=== PATIENT | male | born 1985 | race Caucasian/White ===

== ENCOUNTER 2017-02-05 13:02 | Emergency (ER) | payer BC ==
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
[2017-02-05 14:13] VITALS: BP 142/92
--- NOTE | 2017-02-06 12:36 | CR ---
EXAM DATE: 02/05/17 PATIENT'S AGE: 31 Patient: TRISTON PATEL Facility: [place], [place] Site . Site : 1985 Study: XRay Extremity Left Ankle [id number]/16/2017 1:37:42 PM Ordering Physician: Doctor Lee Final Report: INDICATION: Left ankle injury with pain. TECHNIQUE: Three views of the left ankle. COMPARISON: None. FINDINGS: Nondisplaced, oblique distal fibular fracture with associated soft tissue swelling is seen. No other fractures. The alignment is otherwise within normal limits. Dictated by Levi Lynn MD @ 02/05/2017 2:13:19 PM Dictated by: Levi Lynn MD @ 02/05/2017 14:13:23 (Electronic Signature) Report Signed by Proxy. [facility]DA[facility]ul[facility]
--- NOTE | 2017-02-06 12:37 | CR ---
EXAM DATE: 02/05/17 PATIENT'S AGE: 31 Patient: TRISTON PATEL Facility: [place], [place] Site . Site : 1985 Study: XRay Extremity Left Foor [id number]/16/2017 1:38:10 PM Ordering Physician: Doctor Lee Final Report: INDICATION: Left foot pain after injury. TECHNIQUE: Two views of the left foot. COMPARISON: Left ankle x-rays 02/05/2017. FINDINGS: Again seen is a nondisplaced distal fibular fracture. No other fractures. The foot is intact. Otherwise unremarkable. Dictated by Levi Lynn MD @ 02/05/2017 2:15:24 PM Dictated by: Levi Lynn MD @ 02/05/2017 14:15:29 (Electronic Signature) Report Signed by Proxy. [facility]dulaz[facility]
== END 2017-02-05 14:05 | disposition home or self-care (01) ==
LOC: MW.ED 13:02
DX: S82.435A Nondisplaced oblique fracture of shaft of left fibula, initial encounter for closed fracture (principal); F17.210 Nicotine dependence, cigarettes, uncomplicated; Z79.899 Other long term (current) drug therapy; Y04.0XXA Assault by unarmed brawl or fight, initial encounter
CPT/HCPCS: 73610-26-LT; 73610-LT; 73620-26-LT; 73620-LT; 99283

== ENCOUNTER 2017-02-08 06:32 | Day surgery (SDC) | payer BC ==
[~2017-02-08 06:32] MED LIST: Lactated Ringers 1,000 ML IV SCH; ceFAZolin 2 GM in Premix Bag 1 BAG IV SCH
[2017-02-08] MEDS ORDERED: Ondansetron 4 MG/2 ML SDV ONE (07:32)
[2017-02-08] MEDS ORDERED: Lidocaine 2% 5 ML SDV ONE (07:32)
[2017-02-08] MEDS ORDERED: Midazolam 1 MG/ML 2 ML SDV ONE (07:33)
[2017-02-08] MEDS ORDERED: Propofol 200 MG/20 ML SDV ONE (07:33)
[2017-02-08] MEDS ORDERED: fentaNYL 250 MCG/5 ML SDV ONE (07:33)
--- NOTE | 2017-02-08 07:40 | PCM.PREANE ---
Preanesthetic Assessment - Anesthesia/Transfusion/Family Hx Anesthesia History: No Prior Anesthesia Transfusion History: No Prior Transfusion(s) Intubation History: Unknown - Review of Systems General: No Symptoms Pulmonary: No Symptoms Cardiovascular: No Symptoms Gastrointestinal: No symptoms Neurological: Gait Disturbance (due to fractured ankle), Other (ADHD on meds daily) Other: Reports: None - Physical Assessment NPO Status Date: 02/07/17 NPO Status Time: 22:00 O2 Sat by Pulse Oximetry: 97 Respiratory Rate: 16 Vital Signs: Last Vital Signs Temp 98.1 F 02/08/17 07:00 Pulse 92 02/08/17 07:00 Resp 16 02/08/17 07:00 BP 153/90 H 02/08/17 07:00 Pulse Ox 97 02/08/17 07:00 Height: 6 ft 0.83 in Weight: 218 lb 4.12 oz ASA Class: 2 Mental Status: Alert & Oriented x3 Airway Class: Mallampati = 1 Dentition: Reports: Normal Dentition, Broken Tooth/Teeth (#7/8) Thyro-Mental Finger Breadths: 3 Mouth Opening Finger Breadths: 3 ROM/Head Extension: Full Lungs: Clear to auscultation, Normal respiratory effort Cardiovascular: Regular Rate, Regular Rhythm, No Murmurs - Allergies Allergies/Adverse Reactions: Allergies Allergy/AdvReac Type Severity Reaction Status Date / Time No Known Allergies Allergy Verified 02/05/17 13:10 - Blood Blood Available: No Product(s) Available: None - Acknowledgements Anesthesia Type Planned: General Anesthesia (LMA) Pt an Appropriate Candidate for the Planned Anesthesia: Yes Alternatives and Risks of Anesthesia Discussed w Pt/Guardian: Yes Pt/Guardian Understands and Agrees with Anesthesia Plan: Yes PreAnesthesia Questionnaire - Past Health History Medical/Surgical History: Denies Medical/Surgical History HEENT History: Reports: Other (See Below) Other HEENT History: wears glasses/contacts Cardiovascular History: Reports: None Respiratory History: Reports: None Gastrointestinal History: Reports: None Genitourinary History: Reports: None Musculoskeletal History: Reports: None Neurological History: Reports: None Psychiatric History: Reports: ADHD Endocrine/Metabolic History: Reports: None Hematologic History: Reports: None Immunologic History: Reports: None Oncologic (Cancer) History: Reports: None Dermatologic History: Reports: None - Infectious Disease History Infectious Disease History: Reports: None - Past Surgical History Head Surgeries/Procedures: Reports: None HEENT Surgical History: Reports: None Cardiovascular Surgical History: Reports: None Male Surgical History: Reports: None Musculoskeletal Surgical History: Reports: None - SUBSTANCE USE Smoking Status *Q: Current Some Day Smoker Tobacco Use Within Last Twelve Months: Snuff/Dip Second Hand Smoke Exposure: No Days Per Week of Alcohol Use: 1 Number of Drinks Per Day: 1 Total Drinks Per Week: 1 Recreational Drug Use History: No - HOME MEDS Home Medications: Home Meds Dextroamphetamine/Amphetamine [Adderall 20 mg Tablet] 80 mg PO DAILY 05/11/16 [ History] Hydrocodone/Acetaminophen [Hydrocodon-Acetaminophen 5-325] 1 tab PO ASDIRECTED PRN 02/07/17 [History] - CURRENT (IN HOUSE) MEDS Current Meds: Current Medications Hydrocodone Bitart/Acetaminophen (Tye 325-5 Mg) 1 - 2 tab PO Q4H PRN PRN Reason: Pain Lactated Ringer's (Ringers, Lactated) 1,000 mls @ 100 mls/hr IV ASDIRECTED ROSSANA Last Admin: 02/08/17 07:15 Dose: 100 mls/hr Cefazolin Sodium/Dextrose 2 gm (/ Premix) 50 mls @ 100 mls/hr IV ONCALL ROSSANA Discontinued Medications Fentanyl (Sublimaze) Confirm Administered Dose 250 mcg .ROUTE .STK-MED ONE Stop: 02/08/17 07:34 Lidocaine (Xylocaine-Mpf 2%) Confirm Administered Dose 5 ml .ROUTE .STK-MED ONE Stop: 02/08/17 07:33 Midazolam HCl (Versed 1 Mg/Ml) Confirm Administered Dose 2 mg .ROUTE .STK-MED ONE Stop: 02/08/17 07:34 Ondansetron HCl (Zofran) Confirm Administered Dose 4 mg .ROUTE .STK-MED ONE Stop: 02/08/17 07:33 Propofol (Diprivan 20 Ml) Confirm Administered Dose 200 mg .ROUTE .STK-MED ONE Stop: 02/08/17 07:34
[2017-02-08] MEDS ORDERED: Acetaminophen/HYDROcodone 325-5 MG Tab PO PRN (08:00)
[2017-02-08] MEDS ORDERED: HYDROmorphone 2 MG/ML Syringe ONE (08:21)
[2017-02-08] MEDS ORDERED: Ketorolac 30 MG/ML SDV ONE (08:38)
--- NOTE | 2017-02-08 09:20 | PCM.OPNOTE ---
- General Post-Op/Procedure Note Date of Surgery/Procedure: 02/08/17 Operative Procedure(s): ORIF left distal fibula Post-Op Diagnosis: left distal fibula fracture, unstable Anesthesia Technique: General ET Tube Primary Surgeon: Mary Jo Harmon Manager Language: Mikaela Zayas in mLs: 10 Condition: Good Free Text/Narrative:: tt=25 min #[id number]
[2017-02-08] MEDS: fentaNYL 100 MCG/2 ML SDV IVPUSH PRN ×3 (09:28→10:17)
--- NOTE | 2017-02-08 09:37 | PCM.POSTAN ---
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
[2017-02-08 10:38] VITALS: BP 124/90
--- NOTE | 2017-02-08 15:39 | CR ---
EXAMINATION: Left ankle HISTORY: ORIF COMPARISON: 02/07/2017 TECHNIQUE: 5 views FINDINGS/IMPRESSION: Screw and plate hardware fixate a distal fibular fracture. Position and alignme nt appear near anatomic.
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
== END 2017-02-08 12:00 | disposition home or self-care (01) ==
LOC: MW.SDS 06:32
PROVIDERS: ATTEND Orthopaedic Surgery
PROC: 0QSK04Z Reposition Left Fibula with Internal Fixation Device, Open Approach (ICD-10-PCS; principal; 2017-02-08)
DX: S82.832A Other fracture of upper and lower end of left fibula, initial encounter for closed fracture (principal); F90.9 Attention-deficit hyperactivity disorder, unspecified type; F17.200 Nicotine dependence, unspecified, uncomplicated; Z91.013 Allergy to seafood; Z79.899 Other long term (current) drug therapy
CPT/HCPCS: 27792; 76000; A9270; C1713; J0690; J1170; J1885; J2250; J2405; J3010; J7120; 01480; J2704

== ENCOUNTER 2019-10-12 12:57 | Emergency (ER) | payer BC ==
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
[2019-10-12 13:34] VITALS: BP 132/74; PULSE 64
== END 2019-10-12 13:46 | disposition home or self-care (01) ==
LOC: MW.ED 12:57
DX: J03.00 Acute streptococcal tonsillitis, unspecified (principal); F90.9 Attention-deficit hyperactivity disorder, unspecified type; Z87.891 Personal history of nicotine dependence; Z79.899 Other long term (current) drug therapy
CPT/HCPCS: 87880-QW; 99283

== ENCOUNTER 2020-11-14 22:34 | Emergency (ER) | payer SELFPAY ==
[2020-11-14] MEDS ORDERED: Ketorolac 15 MG/ML SDV IM ONE (23:08)
--- NOTE | 2020-11-14 23:23 | EDM.PDOC ---
ED HPI GENERAL MEDICAL PROBLEM - General Chief Complaint: Upper Extremity Injury/Pain Stated Complaint: RT HAND SWOLLEN Time Seen by Provider: 11/14/20 22:53 - History of Present Illness INITIAL COMMENTS - FREE TEXT/NARRATIVE: CHIEF COMPLAINT(S): Hand pain HISTORY OF PRESENT ILLNESS: This is a 35-year-old man with a past medical history of hypertension who comes to the emergency department with a chief complaint of hand pain. The patient states that approximately 2 weeks ago he cut to the posterior aspect of his right hand near his pinky on a rig. He states that since that time the cut has been healing. He has not been using his hand for work for the last 2 weeks and he returned to work today. He states that he tripped and caught his right hand on something today and started to experience increased swelling. He states that there is 5 out of 10 tenths pain without any decreased range of motion, numbness but states that his right pinky finger is mildly tingling. He denies any fevers or chills. He states that he has not yet taken any pain medication. He states that movement of his hand exacerbates the tenths pain. He states that his tetanus is up-to-date. He denies any purulent drainage but states that his hand does appear to be red and swollen. He denies any other symptoms or other injury. REVIEW OF SYSTEMS: Constitutional: Denies fever, chills. Eyes: Denies eye pain Ears, Nose, Mouth, & Throat: Denies earache Cardiovascular: Denies chest pain Respiratory: Denies shortness of breath Gastrointestinal: Denies Nausea, vomiting, diarrhea, hematochezia. Genitourinary: Denies hematuria Skin:Denies a rash MSK: Positive for right hand pain and swelling Neurological: Positive for tingling of the right pinky. Denies numbness, weakness Psychiatric: Denies depression PAST MEDICAL HISTORY: As per history of present illness and as reviewed below otherwise noncontributory. SURGICAL HISTORY: As per history of present illness and as reviewed below otherwise noncontributory. SOCIAL HISTORY: As per history of present illness and as reviewed below otherwise noncontributory. FAMILY HISTORY: As per history of present illness and as reviewed below otherwise noncontributory. EXAMINATION OF ORGAN SYSTEMS/BODY AREAS: Constitutional: Blood pressure was 155/101, heart rate 97, respiratory rate 17 with an oxygen saturation of 98% on room air. Temperature 36.8 General: Overall well-appearing man who is in no acute distress Psychiatric: Appropriate mood and affect. Eyes: No scleral icterus or conjunctival erythema Cardiovascular: Regular, rate, and rhythm. No gallops, murmurs, or rubs. Bilateral upper extremity pulses symmetric and intact. No peripheral edema. No JVD. Capillary refill less than 2 seconds in distal right upper extremity Respiratory: Lungs clear to auscultation bilaterally. No wheezes, rales, or rhonchi. Musculoskeletal: Patient does have some decreased range of motion of his right fingers due to swelling however they are not held in a flexed position. There is no pain with passive extension of any of the digits. Fingers are not overtly swollen. Skin: There is some redness and warmth and swelling to the posterior aspect of the patient's right lateral hand without any purulent drainage. There appears to be a well-healing cut just over the knuckle of the right pinky. Neurological: Alert, GCS 15 distal sensation is intact MEDICAL DECISION MAKING AND COURSE IN THE ED WITH INTERPRETATION/REVIEW OF DIAGNOSTIC STUDIES: This is a 35-year-old man with a past medical history of hypertension who is right-handed who comes to the emergency department with right hand pain and swelling and redness and warmth after injury 2 weeks ago and exacerbation today while at work. At this time differential does include cellulitis. The patient did not obtain an x-ray with injury 2 weeks ago we will obtain a right hand x-ray to evaluate for fracture. This could be inflammatory. We will provide the patient with Toradol for pain relief. Will obtain basic labs including CBC, and CRP. Patient's tetanus is up-to-date. The radiological images were viewed by myself along with reading the report from the radiologist. Right hand x-ray does not reveal any acute fracture or dislocation. There is moderate to prominent soft tissue swelling involving the ulnar and dorsal aspect of the right hand. Laboratory: CBC reveals a leukocytosis of 14.86. There are no segmented neutrophils. ESR is 1, CRP is less than 0.20. At this time I did discuss the results with the patient. I did discuss that given that this is his right hand and that he is right-hand dominant I would like to start him on antibiotics for cellulitis. I discussed that if he had any worsening swelling, pain, pus drainage he is to return to the emergency department. He was amenable to discharge at this time and had no further questions. DISPOSITION: The patient was discharged home in stable condition. The patient will follow up with primary care physician within 3 to 5 days CONDITION: Fair PROCEDURES: None FINAL IMPRESSION(S)/DIAGNOSES: 1. Acute cellulitis of the right hand Randal Olivares M.D. Right Hand Pain Score (Numeric/FACES): 6 - Related Data Allergies Allergy/AdvReac Type Severity Reaction Status Date / Time No Known Allergies Allergy Verified 11/14/20 22:55 Home Meds: Home Meds Dextroamphetamine/Amphetamine [Adderall 20 mg Tablet] 80 mg PO DAILY 05/11/16 [History] Penicillin V Potassium [Veetids] 500 mg PO BID 10 Days #20 tab 10/12/19 [Rx] cephALEXin [Cephalexin] 500 mg PO Q6HR #28 tablet 11/15/20 [Rx] Past Medical History - Past Health History Medical/Surgical History: Denies Medical/Surgical History HEENT History: Reports: Other (See Below) Other HEENT History: wears glasses/contacts Cardiovascular History: Reports: None Respiratory History: Reports: None Gastrointestinal History: Reports: None Genitourinary History: Reports: None Musculoskeletal History: Reports: None Neurological History: Reports: None Psychiatric History: Reports: ADHD Endocrine/Metabolic History: Reports: None Hematologic History: Reports: None Immunologic History: Reports: None Oncologic (Cancer) History: Reports: None Dermatologic History: Reports: None - Infectious Disease History Infectious Disease History: Reports: None - Past Surgical History Head Surgeries/Procedures: Reports: None HEENT Surgical History: Reports: None Cardiovascular Surgical History: Reports: None Male Surgical History: Reports: None Musculoskeletal Surgical History: Reports: None Social & Family History - Family History Family Medical History: No Pertinent Family History - Caffeine Use Caffeine Use: Reports: Coffee, Energy Drinks Review of Systems - Review of Systems Review Of Systems: See Below ED EXAM, GENERAL - Physical Exam Exam: See Below Course - Vital Signs Last Recorded V/S: Last Vital Signs Temp 36.8 C 11/15/20 00:24 Pulse 81 11/15/20 00:24 Resp 17 11/15/20 00:24 BP 128/84 11/15/20 00:24 Pulse Ox 99 11/15/20 00:24 - Orders/Labs/Meds Labs: Laboratory Tests 11/14/20 11/14/20 11/14/20 Range/Units 23:30 23:30 23:30 WBC 14.86 H (4.0-11.0) K/uL RBC 5.15 (4.50-5.90) M/uL Hgb 15.9 (13.0-17.0) g/dL Hct 46.1 (38.0-50.0) % MCV 89.5 (80.0-98.0) fL MCH 30.9 (27.0-32.0) pg MCHC 34.5 (31.0-37.0) g/dL RDW Std Deviation 41.2 (28.0-62.0) fl RDW Coeff of Ayse 13 (11.0-15.0) % Plt Count 207 (150-400) K/uL MPV 9.60 (7.40-12.00) fL Neut % (Auto) 76.5 (48.0-80.0) % Lymph % (Auto) 14.1 L (16.0-40.0) % [place] % (Auto) 8.7 (0.0-15.0) % Eos % (Auto) 0.6 (0.0-7.0) % Baso % (Auto) 0.1 (0.0-1.5) % Neut # (Auto) 11.4 H (1.4-5.7) K/uL Lymph # (Auto) 2.1 (0.6-2.4) K/uL [place] # (Auto) 1.3 H (0.0-0.8) K/uL Eos # (Auto) 0.1 (0.0-0.7) K/uL Baso # (Auto) 0.0 (0.0-0.1) K/uL Nucleated RBC % 0.0 /100WBC Nucleated RBCs # 0 K/uL ESR 1 (0-14) mm/hr C-Reactive Protein < 0.20 (0.00-0.90) mg/dL Meds: Medications Discontinued Medications Generic Name Dose Route Start Last Admin Trade Name Freq PRN Reason Stop Dose Admin Cephalexin 500 mg 11/15/20 00:03 11/15/20 00:14 Cephalexin 500 Mg Cap PO 11/15/20 00:04 500 mg ONETIME ONE Administration Ketorolac Tromethamine 30 mg 11/14/20 23:08 11/14/20 23:29 Ketorolac 15 Mg/Ml Sdv IM 11/14/20 23:09 30 mg ONETIME ONE Administration Departure - Departure Time of Disposition: 00:15 Disposition: Home, Self-Care 01 Condition: Fair Clinical Impression: Cellulitis - Discharge Information *PRESCRIPTION DRUG MONITORING PROGRAM REVIEWED*: No *COPY OF PRESCRIPTION DRUG MONITORING REPORT IN PATIENT NNAMDI: No Prescriptions: cephALEXin [Cephalexin] 500 mg PO Q6HR #28 tablet Instructions: Cellulitis, Adult Referrals: Madina Mcghee DO [Primary Care Provider] - Forms: ED Department Discharge Additional Instructions: You were evaluated today on an emergent basis. At this time there is no evidence of any fracture. I do believe you do have a skin infection. I started you on antibiotic called Keflex. I want you to take this 4 times a day until all the antibiotics are gone. In addition please use Tylenol and Motrin as the scheduled below and keep your hand elevated and ice it 20 minutes 4 times a day. Given that this is your right hand I want you to keep monitoring it. If you have increased pain, swelling of your fingers like a sausage, and there is severe pain when you extend them by pushing the finger up I would like you to return to the emergency department. Otherwise please follow-up with your primary care physician within 3 to 5 days. Please return for any new or worsening symptoms Please use: Tylenol 500-1000mg every 6 hours (DO NOT TAKE MORE THAN 4000mg in 1 day) Ibuprofen 400mg every 6 hours (Take with food as it can cause ulcers, GI upset) Example schedule: 8:00 AM (Tylenol 500-1000mg) 11:00 AM (Ibuprofen 400mg) 2:00 PM (Tylenol 500-1000mg) 5:00 PM (Ibuprofen 400mg) Ice the area 20 minutes 4 times per day [facility] [address] [place] [address] [id number] [address] [id number] The patient is informed of any results of their evaluation and diagnostic workup and all questions are answered. They are given discharge instructions and return precautions. The patient is stable for discharge. The patient states they u nderstand and agree with the plan and that they will return if their symptoms get worse or if they have any new concerns. The following information is given to patients seen in the emergency department who are being discharged to home. This information is to outline your options for follow-up care. We provide all patients seen in our emergency department with a follow-up referral. The need for follow-up, as well as the timing and circumstances, are variable depending upon the specifics of your emergency department visit. If you don't have a primary care physician on staff, we will provide you with a referral. We always advise you to contact your personal physician following an emergency department visit to inform them of the circumstance of the visit and for follow-up with them and/or the need for any referrals to a consulting specialist. The emergency department will also refer you to a specialist when appropriate. This referral assures that you have the opportunity for follow-up care with a specialist. All of these measure are taken in an effort to provide you with optimal care, which includes your follow-up. Under all circumstances we always encourage you to contact your private physician who remains a resource for coordinating your care. When calling for follow-up care, please make the office aware that this follow-up is from your recent emergency room visit. If for any reason you are refused follow-up, please contact the [facility] Emergency Department at and asked to speak to the emergency department charge nurse. Sepsis Event Note (ED) - Evaluation Sepsis Screening Result: No Definite Risk - Focused Exam Vital Signs: Vital Signs Temp Pulse Resp BP Pulse Ox 11/15/20 00:24 36.8 C 81 17 128/84 99 11/14/20 22:56 36.8 C 97 17 155/101 H 98
--- NOTE | 2020-11-14 23:54 | CR ---
INDICATION: Injury and swelling to back of hand in the area of the 4th and 5th metacarpals. TECHNIQUE: Three views right hand. FINDINGS: Moderate to prominent soft tissue swelling involving the ulnar and dorsal aspect of the right hand. No acute fracture or dislocation in right hand. Vague area of benign sclerosis at the base of the right 5th metacarpal. Remainder negative. Dictated by Micah Alvarez MD @ 11/14/2020 11:52:[address] Micah Alvarez @ Nov 14 2020 11:52PM
[2020-11-15] MEDS ORDERED: Cephalexin 500 MG Cap PO ONE (00:03)
[2020-11-15 00:24] VITALS: BP 128/84; PULSE 81
== END 2020-11-15 00:25 | disposition home or self-care (01) ==
LOC: MW.ED 22:34
DX: L03.113 Cellulitis of right upper limb (principal)
CPT/HCPCS: 36415; 73130; 85025; 85652; 86140; 96372; 99283; A9270; J1885

== ENCOUNTER 2020-12-13 23:11 | Emergency (ER) | payer BC ==
[2020-12-13] MEDS ORDERED: LORazepam 2 MG/ML SDV IVPUSH ONE (23:34)
[2020-12-13] MEDS ORDERED: Sodium Chloride 0.9% 1,000 ML IV ONE (23:34)
[2020-12-13] MEDS ORDERED: Sodium Chloride 0.9% 10 ML Syringe FLUSH PRN (23:34)
[2020-12-13] MEDS ORDERED: Sodium Chloride 0.9% 2.5 ML Syringe FLUSH PRN (23:34)
--- NOTE | 2020-12-13 23:36 | EDM.PDOC ---
ED HPI GENERAL MEDICAL PROBLEM - General Chief Complaint: Chest Pain Stated Complaint: CHEST PRESSURE, FAINTED EARLIER Time Seen by Provider: 12/13/20 23:18 Source of Information: Reports: Patient History Limitations: Reports: No Limitations - History of Present Illness INITIAL COMMENTS - FREE TEXT/NARRATIVE: 35-year-old male past medical history hypertension presents for chest pain and presyncopal episode. Patient states that he has been struggling with his blood pressure being high. This evening he began to experience a chest heaviness associated with a feeling of not being him to take in a deep breath. When he stood up from the couch he got very dizzy and had to sit back down and felt like he almost passed out. He does endorse some anxiety and is trying to attribute the symptoms to anxiety. He does not have any known cardiac problems. Denies cough. Mild shortness of breath. Middle Chest Pain Score (Numeric/FACES): 3 - Related Data Allergies Allergy/AdvReac Type Severity Reaction Status Date / Time No Known Allergies Allergy Verified 12/13/20 23:17 Home Meds: Home Meds Dextroamphetamine/Amphetamine [Adderall 20 mg Tablet] 80 mg PO DAILY 05/11/16 [History] Penicillin V Potassium [Veetids] 500 mg PO BID 10 Days #20 tab 10/12/19 [Rx] cephALEXin [Cephalexin] 500 mg PO Q6HR #28 tablet 11/15/20 [Rx] Past Medical History - Past Health History Medical/Surgical History: Denies Medical/Surgical History HEENT History: Reports: Other (See Below) Other HEENT History: wears glasses/contacts Cardiovascular History: Reports: None Respiratory History: Reports: None Gastrointestinal History: Reports: None Genitourinary History: Reports: None Musculoskeletal History: Reports: None Neurological History: Reports: None Psychiatric History: Reports: ADHD Endocrine/Metabolic History: Reports: None Hematologic History: Reports: None Immunologic History: Reports: None Oncologic (Cancer) History: Reports: None Dermatologic History: Reports: None - Infectious Disease History Infectious Disease History: Reports: None - Past Surgical History Head Surgeries/Procedures: Reports: None HEENT Surgical History: Reports: None Cardiovascular Surgical History: Reports: None Male Surgical History: Reports: None Musculoskeletal Surgical History: Reports: None Social & Family History - Family History Family Medical History: No Pertinent Family History - Caffeine Use Caffeine Use: Reports: Coffee, Soda ED ROS GENERAL - Review of Systems Review Of Systems: Comprehensive ROS is negative, except as noted in HPI. ED EXAM, GENERAL - Physical Exam Exam: See Below Exam Limited By: No Limitations General Appearance: Alert, WD/WN, No Apparent Distress Throat/Mouth: Normal Voice, No Airway Compromise Head: Atraumatic, Normocephalic Neck: Normal Inspection Respiratory/Chest: No Respiratory Distress, Lungs Clear, Normal Breath Sounds, No Accessory Muscle Use Cardiovascular: Normal Peripheral Pulses, Tachycardia Extremities: Normal Inspection Neurological: Alert Psychiatric: Normal Affect, Normal Mood Skin Exam: Warm, Dry, Intact, Normal Color #1 Interpretation EKG Date: 12/13/20 Time: 23:25 Rhythm: NSR Rate (Beats/Min): 102 [place]: Normal P-Wave: Present QRS: Normal ST-T: Normal QT: Normal MT/PQ Interval: 217 Comparison: NA - No Prior EKG Course - Vital Signs Last Recorded V/S: Last Vital Signs Temp 98.1 F 12/13/20 23:20 Pulse 104 H 12/14/20 01:17 Resp 17 12/14/20 01:17 BP 167/97 H 12/14/20 01:17 Pulse Ox 98 12/14/20 01:17 - Orders/Labs/Meds Orders: Active Orders 24 hr Category Date Time Status Cardiac Monitoring [RC] . DIRECTED Care 12/13/20 23:34 Active EKG Documentation Completion [RC] STAT Care 12/13/20 23:30 Active Pulse Oximetry [RC] ASDIRECTED Care 12/13/20 23:34 Active Sodium Chloride 0.9% [Saline Flush] Med 12/13/20 23:34 Active 10 ml FLUSH ASDIRECTED PRN Sodium Chloride 0.9% [Saline Flush] Med 12/13/20 23:34 Active 2.5 ml FLUSH ASDIRECTED PRN Saline Lock Insert [OM.PC] Stat Oth 12/13/20 23:34 Ordered Medication Orders Sodium Chloride (Sodium Chloride 0.9% 10 Ml Syringe) 10 ml FLUSH ASDIRECTED PRN PRN Reason: Keep Vein Open Last Admin: 12/14/20 00:01 Dose: 10 ml Documented by: RITA Sodium Chloride (Sodium Chloride 0.9% 2.5 Ml Syringe) 2.5 ml FLUSH ASDIRECTED PRN PRN Reason: Keep Vein Open Last Admin: 12/14/20 00:01 Dose: 2.5 ml Documented by: RITA Labs: Laboratory Tests 12/13/20 12/13/20 12/13/20 Range/Units 23:25 23:25 23:55 WBC 9.35 (4.0-11.0) K/uL RBC 5.19 (4.50-5.90) M/uL Hgb 16.3 (13.0-17.0) g/dL Hct 46.4 (38.0-50.0) % MCV 89.4 (80.0-98.0) fL MCH 31.4 (27.0-32.0) pg MCHC 35.1 (31.0-37.0) g/dL RDW Std Deviation 42.2 (28.0-62.0) fl RDW Coeff of Ayse 13 (11.0-15.0) % Plt Count 184 (150-400) K/uL MPV 9.60 (7.40-12.00) fL Neut % (Auto) 60.3 (48.0-80.0) % Lymph % (Auto) 24.6 (16.0-40.0) % [place] % (Auto) 11.9 (0.0-15.0) % Eos % (Auto) 2.9 (0.0-7.0) % Baso % (Auto) 0.3 (0.0-1.5) % Neut # (Auto) 5.6 (1.4-5.7) K/uL Lymph # (Auto) 2.3 (0.6-2.4) K/uL [place] # (Auto) 1.1 H (0.0-0.8) K/uL Eos # (Auto) 0.3 (0.0-0.7) K/uL Baso # (Auto) 0.0 (0.0-0.1) K/uL Nucleated RBC % 0.0 /100WBC Nucleated RBCs # 0 K/uL INR 1.00 APTT 22.3 (18.6-31.3) SEC D-Dimer, Quantitative 0.19 (0.0-0.50) mg/L FEU Sodium 139 (136-148) mmol/L Potassium 3.5 (3.5-5.1) mmol/L Chloride 102 (98-107) mmol/L Carbon Dioxide 27.4 (21.0-32.0) mmol/L BUN 14 (7.0-18.0) mg/dL Creatinine 0.9 (0.8-1.3) mg/dL Est Cr Clr Drug Dosing 131.93 mL/min Estimated GFR (MDRD) > 60.0 ml/min Glucose 141 H (74-106) mg/dL Calcium 8.5 (8.5-10.1) mg/dL Magnesium 1.7 L (1.8-2.4) mg/dL Total Bilirubin 0.2 (0.2-1.0) mg/dL AST 60 H (15-37) IU/L ALT 116 H (14-63) IU/L Alkaline Phosphatase 80 (46-116) U/L Troponin I < 0.050 (0.000-0.056) ng/mL Total Protein 7.4 (6.4-8.2) g/dL Albumin 3.7 (3.4-5.0) g/dL Globulin 3.7 (2.6-4.0) g/dL Albumin/Globulin Ratio 1.0 (0.9-1.6) TSH 3rd Generation 1.89 (0.36-3.74) uIU/mL Meds: Medications Generic Name Dose Route Start Last Admin Trade Name Freq PRN Reason Stop Dose Admin Sodium Chloride 10 ml 12/13/20 23:34 12/14/20 00:01 Sodium Chloride 0.9% 10 Ml Syringe FLUSH 10 ml ASDIRECTED PRN Administration Keep Vein Open Sodium Chloride 2.5 ml 12/13/20 23:34 12/14/20 00:01 Sodium Chloride 0.9% 2.5 Ml Syringe FLUSH 2.5 ml ASDIRECTED PRN Administration Keep Vein Open Discontinued Medications Generic Name Dose Route Start Last Admin Trade Name Freq PRN Reason Stop Dose Admin Sodium Chloride 1,000 mls @ 999 mls/hr 12/13/20 23:34 12/14/20 00:01 Normal Saline IV 12/14/20 00:34 999 mls/hr .Bolus ONE Administration Lorazepam 1 mg 12/13/20 23:34 12/14/20 00:02 Lorazepam 2 Mg/Ml Sdv IVPUSH 12/13/20 23:35 1 mg ONETIME ONE Administration - Re-Assessments/Exams Free Text/Narrative Re-Assessment/Exam: 12/14/20 00:46 Patient's heart rate is improved to the high 90s. He is still hypertensive at 160/100. He notes that he was recently prescribed lisinopril but he has not filled that prescription yet. He also notes that he stopped taking his Adderall roughly 8 days ago. We will follow-up chest x-ray and disposition. Labs are all normal. I did tell patient that he needs to follow-up with his primary care physician and discuss all of these things although I do not see reason to keep him in the hospital for work-up. Departure - Departure Time of Disposition: 01:30 Disposition: Home, Self-Care 01 Condition: Good Clinical Impression: Chest pain Qualifiers: Chest pain type: unspecified Qualified Code(s): R07.9 - Chest pain, unspecified - Discharge Information Instructions: Nonspecific Chest Pain, Adult Referrals: Madina Mcghee DO [Primary Care Provider] - Forms: ED Department Discharge Additional Instructions: Your labs including cardiac enzymes and D-dimer which is a blood test to look for blood clots in the lungs were all normal. Your chest x-ray was normal. Your EKG was unremarkable. You should definitely follow-up with your primary care physician soon as your blood pressure is quite elevated. They may want to do some further testing to ensure that everything is okay with your heart. If you experience worsening chest pain, difficulty breathing, or any new or concerning symptoms I would encourage you to return to the emergency department immediately. Just because your labs today look good does not mean that you do not need further work-up which is why it so important to follow-up with your primary care physician. I would also start taking the lisinopril with that your provider prescribed to you. You can talk to your provider about changing the Adderall to a different medication for ADHD. The following information is given to patients seen in the emergency department who are being discharged to home. This information is to outline your options for follow-up care. We provide all patients seen in our emergency department with a follow-up referral. The need for follow-up, as well as the timing and circumstances, are variable depending upon the specifics of your emergency department visit. If you don't have a primary care physician on staff, we will provide you with a referral. We always advise you to contact your personal physician following an emergency department visit to inform them of the circumstance of the visit and for follow-up with them and/or the need for any referrals to a consulting specialist. The emergency department will also refer you to a specialist when appropriate. This referral assures that you have the opportunity for follow-up care with a specialist. All of these measure are taken in an effort to provide you with optimal care, which includes your follow-up. Under all circumstances we always encourage you to contact your private physician who remains a resource for coordinating your care. When calling for follow-up care, please make the office aware that this follow-up is from your recent emergency room visit. If for any reason you are refused follow-up, please contact the [facility] Emergency Department at and asked to speak to the emergency department charge nurse. Please follow up with your primary care physician. If you do not have a primary care physician, see below: [facility] [address] [place] [id number] [facility] [address] [place] [id number] [facility] [address] [place] [id number] Sepsis Event Note (ED) - Evaluation Sepsis Screening Result: No Definite Risk - Focused Exam Vital Signs: Vital Signs Temp Pulse Resp BP Pulse Ox 12/14/20 01:17 104 H 17 167/97 H 98 12/13/20 23:20 98.1 F 95 18 161/121 H 99 - My Orders Last 24 Hours: My Active Orders 12/13/20 23:30 EKG Documentation Completion [RC] STAT 12/13/20 23:34 Cardiac Monitoring [RC] . DIRECTED Pulse Oximetry [RC] ASDIRECTED Sodium Chloride 0.9% [Saline Flush] 10 ml FLUSH ASDIRECTED PRN Sodium Chloride 0.9% [Saline Flush] 2.5 ml FLUSH ASDIRECTED PRN Saline Lock Insert [OM.PC] Stat - Assessment/Plan Last 24 Hours: My Active Orders 12/13/20 23:30 EKG Documentation Completion [RC] STAT 12/13/20 23:34 Cardiac Monitoring [RC] . DIRECTED Pulse Oximetry [RC] ASDIRECTED Sodium Chloride 0.9% [Saline Flush] 10 ml FLUSH ASDIRECTED PRN Sodium Chloride 0.9% [Saline Flush] 2.5 ml FLUSH ASDIRECTED PRN Saline Lock Insert [OM.PC] Stat
[2020-12-13 23:59] LABS: BLOOD UREA NITROGEN,BUN 14 mg/dL (7.0-18.0); CARBON DIOXIDE,CO2 27.4 mmol/L (21.0-32.0); CHLORIDE,CL 102 mmol/L (98-107); GLUCOSE RANDOM 141 mg/dL (74-106); POTASSIUM,K 3.5 mmol/L (3.5-5.1); SODIUM,NA 139 mmol/L (136-148)
--- NOTE | 2020-12-14 01:28 | CR ---
INDICATION: Short of breath. TECHNIQUE: Chest 1 view. COMPARISON: None FINDINGS: Cardiovascular and mediastinum: Heart size and vasculature are normal in caliber and appearance. Mediastinum is within normal limits. Lungs and pleural space: Lungs are clear. No sign of infiltrate or mass. No sign of pleural effusion. No pneumothorax. Bones and soft tissues: No significant findings. IMPRESSION: Unremarkable chest. Dictated by Garry Alejandra MD @ 12/14/2020 1:27:[address] Garry Alejandra @ Dec 14 2020 1:27AM
[2020-12-14 01:48] VITALS: BP 184/106; PULSE 95
== END 2020-12-14 01:45 | disposition home or self-care (01) ==
LOC: MW.ED 23:11
DX: R07.9 Chest pain, unspecified (principal); Z79.899 Other long term (current) drug therapy
CPT/HCPCS: 36415; 71045; 80053; 83735; 84443; 84484; 85025; 85379; 85610; 85730; 93005; 96374; 99285; J2060; J7030; 93010; 99283

== ENCOUNTER 2020-12-20 14:02 | Emergency (ER) | payer BC ==
--- NOTE | 2020-12-20 15:04 | EDM.PDOC ---
ED HPI GENERAL MEDICAL PROBLEM - General Chief Complaint: General Stated Complaint: STREP Time Seen by Provider: 12/20/20 14:24 Source of Information: Reports: Patient History Limitations: Reports: No Limitations - History of Present Illness INITIAL COMMENTS - FREE TEXT/NARRATIVE: 35-year-old male no past medical history presents for concern for streptococcal pharyngitis. Patient notes that his child was recently diagnosed with strep throat. His boss is requesting that he have a strep test before coming back to work. The patient has no complaints. He denies fevers, shortness of breath, cough. No sore throat. - Related Data Allergies Allergy/AdvReac Type Severity Reaction Status Date / Time No Known Allergies Allergy Verified 12/20/20 15:01 Home Meds: Home Meds Dextroamphetamine/Amphetamine [Adderall 20 mg Tablet] 80 mg PO DAILY 05/11/16 [History] lisinopriL [Lisinopril] 40 mg PO DAILY 12/20/20 [History] Past Medical History - Past Health History Medical/Surgical History: Denies Medical/Surgical History HEENT History: Reports: Other (See Below) Other HEENT History: wears glasses/contacts Cardiovascular History: Reports: None Respiratory History: Reports: None Gastrointestinal History: Reports: None Genitourinary History: Reports: None Musculoskeletal History: Reports: None Neurological History: Reports: None Psychiatric History: Reports: ADHD Endocrine/Metabolic History: Reports: None Hematologic History: Reports: None Immunologic History: Reports: None Oncologic (Cancer) History: Reports: None Dermatologic History: Reports: None - Infectious Disease History Infectious Disease History: Reports: None - Past Surgical History Head Surgeries/Procedures: Reports: None HEENT Surgical History: Reports: None Cardiovascular Surgical History: Reports: None Male Surgical History: Reports: None Musculoskeletal Surgical History: Reports: None Social & Family History - Family History Family Medical History: No Pertinent Family History - Caffeine Use Caffeine Use: Reports: None ED ROS GENERAL - Review of Systems Review Of Systems: Comprehensive ROS is negative, except as noted in HPI. ED EXAM, GENERAL - Physical Exam Exam: See Below Exam Limited By: No Limitations General Appearance: Alert, WD/WN, No Apparent Distress Throat/Mouth: Normal Inspection, Normal Oropharynx, Normal Voice, No Airway Compromise Head: Atraumatic, Normocephalic Neck: Normal Inspection Respiratory/Chest: No Respiratory Distress, Lungs Clear, Normal Breath Sounds, No Accessory Muscle Use Cardiovascular: Normal Peripheral Pulses, Regular Rate, Rhythm Extremities: Normal Inspection Neurological: Alert, Normal Cognition, Normal Gait Psychiatric: Normal Affect, Normal Mood Skin Exam: Warm, Dry, Intact, Normal Color Course - Vital Signs Last Recorded V/S: Last Vital Signs Temp 97 F 12/20/20 15:02 Pulse 100 12/20/20 15:02 Resp 16 12/20/20 15:02 BP 170/102 H 12/20/20 15:02 Pulse Ox 100 12/20/20 15:02 - Orders/Labs/Meds Labs: Laboratory Tests 12/20/20 Range/Units 15:04 Group A Strep (PCR) NOT DETECTED (NOT DETECT) - Re-Assessments/Exams Free Text/Narrative Re-Assessment/Exam: 12/20/20 15:53 Strep testing is negative. WIll d/c home with return to work note Departure - Departure Time of Disposition: 15:54 Disposition: Home, Self-Care 01 Condition: Good Clinical Impression: Encounter for medical screening examination - Discharge Information Instructions: Medical Screening Exam Referrals: Madina Mcghee DO [Primary Care Provider] - Forms: ED Department Discharge Additional Instructions: The following information is given to patients seen in the emergency department who are being discharged to home. This information is to outline your options for follow-up care. We provide all patients seen in our emergency department with a follow-up referral. The need for follow-up, as well as the timing and circumstances, are variable depending upon the specifics of your emergency department visit. If you don't have a primary care physician on staff, we will provide you with a referral. We always advise you to contact your personal physician following an emergency department visit to inform them of the circumstance of the visit and for follow-up with them and/or the need for any referrals to a consulting specialist. The emergency department will also refer you to a specialist when appropriate. This referral assures that you have the opportunity for follow-up care with a specialist. All of these measure are taken in an effort to provide you with optimal care, which includes your follow-up. Under all circumstances we always encourage you to contact your private physician who remains a resource for coordinating your care. When calling for follow-up care, please make the office aware that this follow-up is from your recent emergency room visit. If for any reason you are refused follow-up, please contact the [facility] Emergency Department at and asked to speak to the emergency department charge nurse. Please follow up with your primary care physician. If you do not have a primary care physician, see below: [facility] [address] [place] [id number] [facility] [address] [place] [id number] [facility] [address] [place] [id number] Sepsis Event Note (ED) - Focused Exam Vital Signs: Vital Signs Temp Pulse Resp BP Pulse Ox 12/20/20 15:02 97 F 100 16 170/102 H 100
[2020-12-20 16:01] VITALS: BP 157/104; PULSE 88
== END 2020-12-20 16:01 | disposition home or self-care (01) ==
LOC: MW.ED 14:02
DX: Z13.89 Encounter for screening for other disorder (principal)
CPT/HCPCS: 87651-QW; 99282; 99283

== ENCOUNTER 2021-01-15 09:39 | Emergency (ER) | payer BC ==
[2021-01-15] MEDS ORDERED: Ketorolac 30 MG/ML SDV IM ONE (10:04)
--- NOTE | 2021-01-15 10:10 | EDM.PDOC ---
ED HPI GENERAL MEDICAL PROBLEM - General Chief Complaint: General Stated Complaint: RIBS HURT Time Seen by Provider: 01/15/21 09:45 Source of Information: Reports: Patient History Limitations: Reports: No Limitations - History of Present Illness INITIAL COMMENTS - FREE TEXT/NARRATIVE: Patient is a 35-year-old male who presents today for right rib pain. Patient states that he was trying to jump out of a truck when his foot got caught on the left and he landed on his right ribs. Patient not hit his head or have any LOC. Patient dates this happened yesterday and since then he has had an achy feeling in his ribs is made worse with deep breaths or movements. Patient not take any medication for it at home and does not notice anything that makes the pain better. Patient denies any radiation of the pain. Patient has no other associated symptoms. Right Ribs Pain Score (Numeric/FACES): 10 - Related Data Allergies Allergy/AdvReac Type Severity Reaction Status Date / Time No Known Allergies Allergy Verified 01/15/21 09:47 Home Meds: Home Meds Dextroamphetamine/Amphetamine [Adderall 20 mg Tablet] 60 mg PO DAILY 05/11/16 [History] lisinopriL [Lisinopril] 40 mg PO DAILY 12/20/20 [History] Past Medical History - Past Health History Medical/Surgical History: Denies Medical/Surgical History HEENT History: Reports: Other (See Below) Other HEENT History: wears glasses/contacts Cardiovascular History: Reports: Hypertension Respiratory History: Reports: None Gastrointestinal History: Reports: None Genitourinary History: Reports: None Musculoskeletal History: Reports: None Neurological History: Reports: None Psychiatric History: Reports: ADHD Endocrine/Metabolic History: Reports: None Hematologic History: Reports: None Immunologic History: Reports: None Oncologic (Cancer) History: Reports: None Dermatologic History: Reports: None - Infectious Disease History Infectious Disease History: Reports: None - Past Surgical History Head Surgeries/Procedures: Reports: None HEENT Surgical History: Reports: None Cardiovascular Surgical History: Reports: None Male Surgical History: Reports: None Musculoskeletal Surgical History: Reports: None Social & Family History - Family History Family Medical History: No Pertinent Family History - Caffeine Use Caffeine Use: Reports: Coffee - Recreational Drug Use Recreational Drug Use: No ED ROS GENERAL - Review of Systems Review Of Systems: See Below Constitutional: Reports: No Symptoms HEENT: Reports: No Symptoms Respiratory: Reports: No Symptoms Cardiovascular: Reports: Chest Pain Endocrine: Reports: No Symptoms GI/Abdominal: Reports: No Symptoms : Reports: No Symptoms Musculoskeletal: Reports: No Symptoms Skin: Reports: No Symptoms Neurological: Reports: No Symptoms Psychiatric: Reports: No Symptoms Hematologic/Lymphatic: Reports: No Symptoms Immunologic: Reports: No Symptoms ED EXAM, GENERAL - Physical Exam Exam: See Below Exam Limited By: No Limitations General Appearance: Alert, WD/WN, No Apparent Distress Eye Exam: Bilateral Eye: EOMI, PERRL Head: Atraumatic, Normocephalic Neck: Normal Inspection Respiratory/Chest: No Respiratory Distress, Lungs Clear, Normal Breath Sounds, Chest Non-Tender Cardiovascular: Normal Peripheral Pulses, Regular Rate, Rhythm GI/Abdominal: Normal Bowel Sounds, Soft, Non-Tender Extremities: Normal Inspection, Normal Range of Motion Neurological: Alert, Oriented, CN II-XII Intact, Normal Cognition Course - Vital Signs Last Recorded V/S: Last Vital Signs Temp 96.7 F L 01/15/21 09:47 Pulse 88 01/15/21 09:47 Resp 17 01/15/21 09:47 BP 136/91 H 01/15/21 09:47 Pulse Ox 98 01/15/21 09:47 - Orders/Labs/Meds Meds: Medications Discontinued Medications Generic Name Dose Route Start Last Admin Trade Name Andrew PRN Reason Stop Dose Admin Ketorolac Tromethamine 30 mg 01/15/21 10:04 01/15/21 10:12 Ketorolac 30 Mg/Ml Sdv IM 01/15/21 10:05 30 mg ONETIME ONE Administration - Re-Assessments/Exams Free Text/Narrative Re-Assessment/Exam: 01/15/21 11:17 Patient x-ray shows 7 rib fracture on the right. Patient said he was sent and looks well we will send home with pain control and sent from there. Departure - Departure Time of Disposition: 11:17 Disposition: Home, Self-Care 01 Condition: Good Clinical Impression: Rib fracture - Discharge Information *PRESCRIPTION DRUG MONITORING PROGRAM REVIEWED*: Not Applicable *COPY OF PRESCRIPTION DRUG MONITORING REPORT IN PATIENT NNAMDI: Not Applicable Instructions: Rib Fracture, [id number] Referrals: Madina Mcghee DO [Primary Care Provider] - Forms: ED Department Discharge Additional Instructions: The following information is given to patients seen in the emergency department who are being discharged to home. This information is to outline your options for follow-up care. We provide all patients seen in our emergency department with a follow-up referral. The need for follow-up, as well as the timing and circumstances, are variable depending upon the specifics of your emergency department visit. If you don't have a primary care physician on staff, we will provide you with a referral. We always advise you to contact your personal physician following an emergency department visit to inform them of the circumstance of the visit and for follow-up with them and/or the need for any referrals to a consulting specialist. The emergency department will also refer you to a specialist when appropriate. This referral assures that you have the opportunity for follow-up care with a specialist. All of these measure are taken in an effort to provide you with optimal care, which includes your follow-up. Under all circumstances we always encourage you to contact your private physician who remains a resource for coordinating your care. When calling for follow-up care, please make the office aware that this follow-up is from your recent emergency room visit. If for any reason you are refused follow-up, please contact the [facility] Emergency Department at and asked to speak to the emergency department charge nurse. Please follow up with your primary care physician. If you do not have a primary care physician, see below: [facility] [address] [place] [id number] [facility] [address] [place] [id number] You were seen today for right-sided rib pain. Your x-ray shows you have a 7 rib fracture. Please take Tylenol or Motrin for the pain as needed. We will also send you home with a Percocet prescription that she should only take if the pain becomes too intense. Please not drink or drive or operate heavy machinery while using this medication. If you have any other concerning signs or symptom please return to the ED otherwise follow-up with your primary care physician. Sepsis Event Note (ED) - Evaluation Sepsis Screening Result: No Definite Risk - Focused Exam Vital Signs: Vital Signs Temp Pulse Resp BP Pulse Ox 01/15/21 09:47 96.7 F L 88 17 136/91 H 98 - Assessment/Plan Plan: Patient is a 35-year-old male who presents today for right-sided rib pain after landed on his right side. Patient has no noticeable bruising to the rib area but does have some areas of tenderness. Will obtain x-rays provide pain control and reassess.
--- NOTE | 2021-01-15 11:01 | CR ---
INDICATION: Fall onto ribs TECHNIQUE: Single view chest with AP and Oblique views right chest COMPARISON: None available. FINDINGS: There is no dense consolidation, effusion, or pneumothorax. The cardiomediastinal silhouette is within normal limits. There is a minimally displaced fracture of the lateral anterior 7th rib. No other displaced injuries are appreciated. The bony thorax is otherwise intact. IMPRESSION: No acute cardiopulmonary abnormality. Minimally displaced fracture of the lateral, anterior 7th rib. If pain and clinical symptoms persist, subtle, non-displaced injuries are not entirely excluded. Dictated by Quinton Ambriz MD @ 01/15/2021 11:01:[address] Quinton Ambriz @ Jan 15 2021 11:01AM
[2021-01-15 11:27] VITALS: BP 138/76; PULSE 79
== END 2021-01-15 11:27 | disposition home or self-care (01) ==
LOC: MW.ED 09:39
DX: S22.31XA Fracture of one rib, right side, initial encounter for closed fracture (principal); I10 Essential (primary) hypertension; W17.89XA Other fall from one level to another, initial encounter; W23.0XXA Caught, crushed, jammed, or pinched between moving objects, initial encounter
CPT/HCPCS: 71101; 96372; 99283; J1885

== ENCOUNTER 2022-01-16 01:17 | Emergency (ER) | payer BC ==
[2022-01-16] MEDS ORDERED: Lisinopril 10 MG Tab PO STA (01:43)
[2022-01-16 02:10] VITALS: BP 160/94; PULSE 74
== END 2022-01-16 02:00 ==
LOC: MW.ED 01:17
DX: I10 Essential (primary) hypertension (principal); F17.210 Nicotine dependence, cigarettes, uncomplicated; Z79.899 Other long term (current) drug therapy
CPT/HCPCS: 99283; A9270; 99282

== ENCOUNTER 2022-07-24 01:39 | Emergency (ER) | payer BC ==
[2022-07-24 02:48] VITALS: BP 151/100; PULSE 65
== END 2022-07-24 03:53 | disposition home or self-care (01) ==
LOC: MW.ED 01:39
DX: I10 Essential (primary) hypertension (principal); Z79.899 Other long term (current) drug therapy
CPT/HCPCS: 99283

== ENCOUNTER 2023-01-19 06:40 | Day surgery (SDC) | payer BC ==
[~2023-01-19 06:40] MED LIST changes: -Lactated Ringers 1,000 ML IV SCH; +Sodium Chloride 0.9% 10 ML Syringe FLUSH PRN; +Sodium Chloride 0.9% 2.5 ML Syringe FLUSH PRN; +Sodium Chloride 0.9% 20 ML SDV IV PRN; -ceFAZolin 2 GM in Premix Bag 1 BAG IV SCH
[2023-01-19] MEDS: Lactated Ringers 1,000 ML IV SCH ×3 (07:04→21:40)
[2023-01-19] MEDS ORDERED: Lidocaine 1% 20 ML MDV ONE (07:15)
[2023-01-19] MEDS ORDERED: Bupivacaine 0.5% 30 ML SDV ONE (07:15)
[2023-01-19] MEDS ORDERED: Propofol 200 MG/20 ML SDV ONE (07:21)
[2023-01-19] MEDS ORDERED: fentaNYL 100 MCG/2 ML SDV ONE (07:21)
[2023-01-19] MEDS ORDERED: Dexmedetomidine 200 MCG/2 ML SDV ONE (07:22)
[2023-01-19] MEDS ORDERED: ceFAZolin 2 GM Vial ONE (07:22)
[2023-01-19] MEDS ORDERED: Water For Injection, Sterile 20 ML ONE (07:23)
[2023-01-19] MEDS ORDERED: Lidocaine 1% 5 ML VIAL ONE (07:24)
[2023-01-19] MEDS ORDERED: Rocuronium Bromide 50 MG/5 ML Syringe ONE (07:51)
[2023-01-19] MEDS ORDERED: ceFAZolin 1 GM Vial ONE (07:56)
[2023-01-19] MEDS ORDERED: Ondansetron 4 MG/2 ML SDV ONE (08:01)
[2023-01-19] MEDS ORDERED: Sugammadex Sodium 200 MG/2 ML VIAL ONE (08:22)
[2023-01-19] MEDS ORDERED: metroNIDAZOLE/Normal Saline 500 MG in Premix Bag 1 BAG IV ONE (08:25)
[2023-01-19] MEDS ORDERED: HYDROmorphone 1 MG/ML Syringe IVPUSH PRN (08:29)
[2023-01-19] MEDS ORDERED: Morphine 2 MG/ML SYRINGE IVPUSH PRN (08:29)
[2023-01-19] MEDS ORDERED: Albuterol 0.083% 2.5 MG/3 ML Neb Soln NEB PRN (08:29)
[2023-01-19] MEDS ORDERED: Metoclopramide 10 MG/2 ML SDV IVPUSH PRN (08:29)
[2023-01-19] MEDS ORDERED: fentaNYL 50 MCG/ML SDV IVPUSH PRN (08:29)
[2023-01-19] MEDS ORDERED: Naloxone 0.4 MG/ML SDV IVPUSH PRN (08:29)
[2023-01-19] MEDS ORDERED: droPERidol 5 MG/2 ML SDV IVPUSH PRN (08:29)
[2023-01-19] MEDS ORDERED: Ondansetron 4 MG/2 ML SDV IVPUSH PRN ×2 (08:29→08:38)
[2023-01-19] MEDS ORDERED: diphenhydrAMINE 50 MG/ML SDV IVPUSH PRN (08:38)
[2023-01-19 09:23] LABS: HEMATOCRIT 41.6 % (38.0-50.0); HEMOGLOBIN 14.3 g/dL (13.0-17.0); MEAN CORPUSCULAR HEMOGLOBIN 29.1 pg (27.0-32.0); MEAN CORPUSCULAR HGB CONC 34.4 g/dL (31.0-37.0); MEAN CORPUSCULAR VOLUME 84.7 fL (80.0-98.0); RED BLOOD CELL COUNT 4.91 M/uL (4.50-5.90); WHITE BLOOD CELL COUNT,WBC 9.79 K/uL (4.0-11.0)
[2023-01-19] MEDS: Acetaminophen/HYDROcodone 325-10 MG Tab PO PRN ×2 (10:43→19:12)
[2023-01-19] MEDS ORDERED: ceFAZolin 2 GM in Sodium Chloride 0.9% 50 ML IV ONE (11:50)
[2023-01-19] MEDS: Piperacillin/Tazobactam 3.375 GM in Sodium Chloride 0.9% 100 ML IV SCH ×2 (12:34→18:11)
[2023-01-19] MEDS: Lisinopril 10 MG Tab PO SCH ×2 (15:28→16:03)
[2023-01-20] MEDS: Acetaminophen/HYDROcodone 325-10 MG Tab PO PRN ×2 (00:40→06:12)
[2023-01-20] MEDS: Piperacillin/Tazobactam 3.375 GM in Sodium Chloride 0.9% 100 ML IV SCH ×2 (00:40→06:10)
[2023-01-20 06:29] LABS: BASOPHILS PERCENT AUTO 0.3 % (0.0-1.5); EOSINOPHILS ABSOLUTE AUTO 0.2 K/uL (0.0-0.7); EOSINOPHILS PERCENT AUTO 2.2 % (0.0-7.0); HEMATOCRIT 39.3 % (38.0-50.0); HEMOGLOBIN 13.5 g/dL (13.0-17.0); LYMPHOCYTES ABSOLUTE AUTO 2.3 K/uL (0.6-2.4); MEAN CORPUSCULAR HGB CONC 34.4 g/dL (31.0-37.0); MEAN CORPUSCULAR VOLUME 84.3 fL (80.0-98.0); MONOCYTES ABSOLUTE AUTO 0.9 K/uL (0.0-0.8); MONOCYTES PERCENT AUTO 12.8 % (0.0-15.0); NEUTROPHILS ABSOLUTE AUTO 3.8 K/uL (1.4-5.7); NEUTROPHILS PERCENT AUTO 52.7 % (48.0-80.0); NRBC ABSOLUTE 0 K/uL; PLATELET COUNT,PLT 189 K/uL (150-400); RED BLOOD CELL COUNT 4.66 M/uL (4.50-5.90); WHITE BLOOD CELL COUNT,WBC 7.12 K/uL (4.0-11.0)
[2023-01-20 08:46] VITALS: BP 120/79; PULSE 75
[2023-01-20] MEDS ORDERED: Lisinopril 10 MG Tab PO SCH (09:00)
== END 2023-01-20 08:51 | disposition home or self-care (01) ==
LOC: MW.SDS 06:40 → MW.MS 09:30 → MW.SDS 01-20 08:51
PROVIDERS: ATTEND Surgery
DX: L72.3 Sebaceous cyst (principal); R22.1 Localized swelling, mass and lump, neck; I10 Essential (primary) hypertension; F90.9 Attention-deficit hyperactivity disorder, unspecified type; E66.9 Obesity, unspecified; Z68.32 Body mass index [BMI] 32.0-32.9, adult; Z79.899 Other long term (current) drug therapy; Z98.890 Other specified postprocedural states; Z91.018 Allergy to other foods; Z87.891 Personal history of nicotine dependence
CPT/HCPCS: 10060; 36415; 85025; 85027; 87070; 87075; 87076; 87205; A9270; J0690; J2543; J2704; J3010; J3490; J7120; 00300; J2405